=== PATIENT | female | born 1995 | race African-American/Black ===

== ENCOUNTER 2022-02-28 19:45 | Emergency (ER) | payer MEDICAID ==
[~2022-02-28] VITALS: Ht 152.4 cm; Wt 79.4 kg
[2022-02-28 20:21] VITALS: BP 120/66
[2022-02-28] MEDS ORDERED: IBUP-1842 PO (20:53)
[2022-02-28 21:30] VITALS: BP 120/66
[2022-03-01] MEDS ORDERED: IBUP-1842 PO (07:10)
[2022-03-01] MEDS ORDERED: ACET-10509 PO (19:33)
[2022-03-01] MEDS ORDERED: CEPH-588 PO (19:33)
== END 2022-02-28 21:30 | disposition home or self-care (01) ==
LOC: MED 19:45
DX: Z20.822 Contact with and (suspected) exposure to COVID-19 (principal)
CPT/HCPCS: 99282

== ENCOUNTER 2022-03-01 18:45 | Emergency (ER) | payer MEDICAID ==
[~2022-03-01] VITALS: Ht 167.6 cm; Wt 78.2 kg
[~2022-03-01 18:45] MED LIST: IBUP-1842 PO
[2022-03-01 19:02] VITALS: BP 134/77
[2022-03-01] MEDS ORDERED: CEPH-588 PO (19:33)
[2022-03-01] MEDS ORDERED: ACET-10509 PO (19:33)
[2022-03-01 19:38] LABS: APPEARANCE,URINE CLEAR (CLEAR); BILIRUBIN,URINE 1+ (NEGATIVE); BLOOD, URINE NEGATIVE (NEGATIVE); COLOR,URINE YELLOW (YELLOW); LEUKOCYTE ESTERASE ,URINE NEGATIVE (NEGATIVE); NITRITE, URINE NEGATIVE (NEGATIVE); UGLUCOSE NEGATIVE (NEGATIVE)
[2022-03-01 20:00] VITALS: BP 134/77
== END 2022-03-01 20:01 | disposition home or self-care (01) ==
LOC: MED 18:45
DX: N39.0 Urinary tract infection, site not specified (principal)
CPT/HCPCS: 81003; 81025; 99283

== ENCOUNTER 2022-07-03 09:09 | Emergency (ER) | payer MEDICAID ==
[~2022-07-03] VITALS: Ht 167.6 cm; Wt 79.8 kg
[~2022-07-03 09:09] MED LIST changes: +ACET-10509 PO; +CEPH-588 PO
[2022-07-03 09:53] VITALS: BP 139/83
--- NOTE | 2022-07-03 10:51 | NUR ---
BIB SELF C/O 03/14 R THIGH PAIN S/P POSSIBLE SPIDER BITE X YESTERDAY.
[2022-07-03] MEDS ORDERED: CEPH500C16 PO (11:27)
== END 2022-07-03 11:35 | disposition home or self-care (01) ==
LOC: MED 09:09
DX: L03.115 Cellulitis of right lower limb (principal); Z79.899 Other long term (current) drug therapy
CPT/HCPCS: 99283

== ENCOUNTER 2022-11-06 08:12 | Emergency (ER) | payer MEDICAID ==
[~2022-11-06] VITALS: Ht 167.6 cm; Wt 77.6 kg
[~2022-11-06 08:12] MED LIST changes: +CEPH500C16 PO
[2022-11-06 08:25] VITALS: BP 107/79
--- NOTE | 2022-11-06 08:25 | NUR ---
PT AMB TO BED 4.
--- NOTE | 2022-11-06 08:43 | NUR ---
MD SILVERMAN AT BEDSIDE FOR EVALUATION
--- NOTE | 2022-11-06 08:43 | NUR ---
27YO FEMALE PT C/O COUGH, SORE THROAT AND RUNNY NOSE X4-5DAYS. MOIST NON PRODUCTIVE COUGH NOTED. THROAT PINK W/O SWELLING. CLEAR CAROLYNN LUNGS. STATES WORSENING SYMPTOMS AT NIGHT. RESPIRATIONS EVEN AND UNLABORED. DENIES V/D, CHEST PAIN ,SOB OR RELIEF AFTER OTC MEDICATION . +CONTACT W/ SICK FRIEND. PT AAOX4, SITTING IN BEDSIDE CHAIR. HX:DENIES NKA
--- NOTE | 2022-11-06 08:50 | NUR ---
27/F PRESENTS TO ED WITH C/O PRODUCTIVE COUGH, SORE THROAT AND RUNNY NOSE. REPORTS SON SICK WITH SIMILAR SYMPTOMS, DENIES N/V/D.
[2022-11-06] MEDS ORDERED: LORA1T1237 PO (08:58)
--- NOTE | 2022-11-06 09:02 | NUR ---
Patient discharged with v/s stable. Written and verbal after care instructions FOR VIRAL ILLNESS given and explained. Patient alert, oriented and verbalized understanding of instructions. Ambulatory with steady gait. All questions addressed prior to discharge. ID band removed. Patient advised to follow up with PMD. Rx of CLARITIN-D given. Opportunity to ask questions provided and answered.
--- NOTE | 2022-11-06 09:14 | NUR ---
The patient's care was reviewed and supervised by Martha Sheridan RN.
== END 2022-11-06 09:02 | disposition home or self-care (01) ==
LOC: MED 08:12
DX: B34.9 Viral infection, unspecified (principal); F12.90 Cannabis use, unspecified, uncomplicated; Z79.2 Long term (current) use of antibiotics; Z79.1 Long term (current) use of non-steroidal anti-inflammatories (NSAID); Z79.899 Other long term (current) drug therapy
CPT/HCPCS: 99282

== ENCOUNTER 2023-04-06 21:55 | Emergency (ER) | payer MEDICAID ==
[~2023-04-06] VITALS: Ht 167.6 cm; Wt 74.8 kg
[~2023-04-06 21:55] MED LIST changes: +LORA1T1237 PO
[2023-04-06 22:00] VITALS: BP 125/78; PULSE 78; RESP 16; TEMP 98.4; O2SAT 98
--- NOTE | 2023-04-06 22:02 | NUR ---
TO LOBBY A/W BED WITH SON
[2023-04-06] MEDS ORDERED: FAMO-90 PO (23:45)
[2023-04-06] MEDS ORDERED: ALUM355S59 PO (23:45)
--- NOTE | 2023-04-06 23:57 | NUR ---
PT LEFT W/O DISCHARGE INSTRUCITONS
== END 2023-04-06 23:57 | disposition home or self-care (01) ==
LOC: MED 21:55
DX: R12 Heartburn (principal); R11.10 Vomiting, unspecified; Z79.899 Other long term (current) drug therapy
CPT/HCPCS: 87081; 99283